=== PATIENT | female | born 1975 | race Caucasian/White ===

== ENCOUNTER 2017-04-19 13:36 | Emergency (ER) | payer BC ==
[2017-04-19] MEDS ORDERED: Sodium Chloride 0.9% 10 ML Syringe FLUSH PRN (14:16)
[2017-04-19] MEDS ORDERED: Sodium Chloride 0.9% 2,000 ML IV ONE (14:16)
[2017-04-19] MEDS ORDERED: HYDROmorphone 0.5 MG/0.5 ML Syringe IM ONE (14:16)
[2017-04-19] MEDS ORDERED: Ondansetron 4 MG/2 ML SDV IVPUSH ONE (14:16)
[2017-04-19] MEDS ORDERED: HYDROmorphone 0.5 MG/0.5 ML Syringe IVPUSH ONE ×2 (14:23→18:45)
--- NOTE | 2017-04-19 14:24 | EDM.PDOC ---
ED HPI GENERAL MEDICAL PROBLEM - General Chief Complaint: Abdominal Pain Stated Complaint: VOMITING LOWER ABDOMINAL PAIN Time Seen by Provider: 04/19/17 14:06 Source of Information: Reports: Patient History Limitations: Reports: No Limitations - History of Present Illness INITIAL COMMENTS - FREE TEXT/NARRATIVE: Patient is a 42-year-old female who presents to the ED complaining of periumbilical abdominal pain with nausea, vomiting, and diarrhea. Patient states the nausea and vomiting started at approx. 2:00 this morning and has progressed since. She cannot keep anything down at this point. Currently she is dry heaving while in the ED. Pain to the abdomen is described as a crampy sharp sensation that radiates to her back. Worsens with vomiting. She questions if it is not related to her gallbladder. She's had no symptoms as such in the past. 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 She ate pizza last night along with all of her family with nobody else sick from the food. There's been no blood within her stools. There's been no documented fever, chest pain, shortness of breath, dysuria, or any additional complaints. Upon arrival patient was tachycardic at rest. Suspect volume depletion. She has a history of hypokalemia and takes potassium supplementation, Anxiety takes Zoloft, Acne takes spironolactone. She also has a history of kidney stones. Abdomen Pain Score (Numeric/FACES): 7 - Related Data Allergies Allergy/AdvReac Type Severity Reaction Status Date / Time acetaminophen [From Vicodin] Allergy Itching Verified 04/19/17 13:50 hydrocodone [From Vicodin] Allergy Itching Verified 04/19/17 13:50 Home Meds: Home Meds Potassium Chloride 10 meq PO DAILY #70 tablet.er 01/27/14 [Rx] Sertraline HCl [Zoloft] 100 mg PO DAILY 01/27/14 [History] Acetaminophen/oxyCODONE [Percocet 325-5 MG] 1 tab PO Q6H PRN #21 tablet [Rx] Control Med. 1 tab PO DAILY 04/19/17 [History] Levofloxacin [Levaquin] 500 mg PO Q24H #7 tablet 04/19/17 [Rx] Ondansetron [Zofran ODT] 4 mg PO Q6H PRN #21 tab.dis 04/19/17 [Rx] Spironolactone [Aldactone] 25 mg PO DAILY 04/19/17 [History] Past Medical History Psychiatric History: Reports: Anxiety Social & Family History - Tobacco Use Smoking Status *Q: Never Smoker - Alcohol Use Days Per Week of Alcohol Use: 0 - Recreational Drug Use Recreational Drug Use: No ED ROS GENERAL - Review of Systems Review Of Systems: ROS reveals no pertinent complaints other than HPI. ED EXAM, GI/ABD - Physical Exam Exam: See Below Exam Limited By: Other (dyr heaving) General Appearance: Alert, WD/WN, Moderate Distress Ears: Hearing Grossly Normal Nose: Normal Inspection Throat/Mouth: Normal Voice, No Airway Compromise, Other (dry oral mucosa) Neck: Normal Inspection, Supple Respiratory/Chest: No Respiratory Distress, Lungs Clear, Normal Breath Sounds, No Accessory Muscle Use, Chest Non-Tender Cardiovascular: Normal Peripheral Pulses, No Murmur, Tachycardia GI/Abdominal Exam: Normal Bowel Sounds, Soft, No Organomegaly, No Distention, Tender (periumbilical region) Back Exam: Normal Inspection Neurological: Alert, Oriented, CN II-XII Intact, Normal Cognition, No Motor/ Sensory Deficits Psychiatric: Normal Affect, Normal Mood Skin Exam: Warm, Dry, Other (pale) Course - Vital Signs Last Recorded V/S: Last Vital Signs Temp 97.6 F 04/19/17 13:52 Pulse 111 H 04/19/17 13:52 Resp 18 04/19/17 13:52 BP 110/81 04/19/17 13:52 Pulse Ox 100 04/19/17 13:52 Orthostatic Blood Pressure [ 107/76 Standing] Orthostatic Blood Pressure [ 103/72 Sitting] Orthostatic Blood Pressure [ 100/57 Supine] - Orders/Labs/Meds Orders: Active Orders 24 hr Category Date Time Status EKG Documentation Completion [RC] STAT Care 04/19/17 14:57 Active Labs: Laboratory Tests 04/19/17 04/19/17 04/19/17 Range/Units 14:05 14:05 14:05 WBC 13.75 H (3.98-10.04) K/mm3 RBC 5.56 H (3.98-5.22) M/mm3 Hgb 15.6 (11.2-15.7) gm/L Hct 45.5 H (34.1-44.9) % MCV 81.8 (79.4-94.8) fl MCH 28.1 (25.6-32.2) pg MCHC 34.3 (32.2-35.5) g/dl RDW Std Deviation 43.3 (36.4-46.3) fL Plt Count 330 (182-369) K/mm3 MPV 11.0 (9.4-12.3) fl Neut % (Auto) 92.6 H (34.0-71.1) % Lymph % (Auto) 3.0 L (19.3-51.7) % [place] % (Auto) 3.5 L (4.7-12.5) % Eos % (Auto) 0.5 L (0.7-5.8) Baso % (Auto) 0.1 (0.1-1.2) % Neut # (Auto) 12.73 H (1.56-6.13) K/mm3 Lymph # (Auto) 0.41 L (1.18-3.74) K/mm3 [place] # (Auto) 0.48 H (0.24-0.36) K/mm3 Eos # (Auto) 0.07 (0.04-0.36) K/mm3 Baso # (Auto) 0.02 (0.01-0.08) K/mm3 Manual Slide Review Abnormal smear Sodium 141 (136-145) mEq/L Potassium 2.3 L* (3.5-5.1) mEq/L Chloride 105 (98-107) mEq/L Carbon Dioxide 19 L (21-32) mEq/L Anion Gap 19.3 H (5-15) BUN 11 (7-18) mg/dL Creatinine 1.0 (0.55-1.02) mg/dL Est Cr Clr Drug Dosing 60.77 mL/min Estimated GFR (MDRD) > 60 (>60) mL/min BUN/Creatinine Ratio 11.0 L (14-18) Glucose 121 H (74-106) mg/dL Calcium 9.3 (8.5-10.1) mg/dL Magnesium (1.8-2.4) mg/dl Total Bilirubin 0.5 (0.2-1.0) mg/dL AST 22 (15-37) U/L ALT 27 (14-59) U/L Alkaline Phosphatase 60 (46-116) U/L Troponin I (0.00-0.056) ng/mL C-Reactive Protein 1.2 H* (<1.0) mg/dL Total Protein 8.4 H (6.4-8.2) g/dl Albumin 4.1 (3.4-5.0) g/dl Globulin 4.3 gm/dL Albumin/Globulin Ratio 1.0 (1-2) Lipase 196 (73-393) U/L HCG, Qual Negative (NEGATIVE) Urine Color (Yellow) Urine Appearance (Clear) Urine pH (5.0-8.0) Ur Specific [place] (1.005-1.030) Urine Protein (Negative) Urine Glucose (UA) (Negative) Urine Ketones (Negative) Urine Occult Blood (Negative) Urine Nitrite (Negative) Urine Bilirubin (Negative) Urine Urobilinogen (0.2-1.0) Ur Leukocyte Esterase (Negative) Urine RBC (0-5) /hpf Urine WBC (0-5) /hpf Ur Epithelial Cells (0-5) /hpf Urine Bacteria (FEW) /hpf Urine Mucus (FEW) /hpf 04/19/17 04/19/17 04/19/17 Range/Units 14:05 14:05 15:20 WBC (3.98-10.04) K/mm3 RBC (3.98-5.22) M/mm3 Hgb (11.2-15.7) gm/L Hct (34.1-44.9) % MCV (79.4-94.8) fl MCH (25.6-32.2) pg MCHC (32.2-35.5) g/dl RDW Std Deviation (36.4-46.3) fL Plt Count (182-369) K/mm3 MPV (9.4-12.3) fl Neut % (Auto) (34.0-71.1) % Lymph % (Auto) (19.3-51.7) % [place] % (Auto) (4.7-12.5) % Eos % (Auto) (0.7-5.8) Baso % (Auto) (0.1-1.2) % Neut # (Auto) (1.56-6.13) K/mm3 Lymph # (Auto) (1.18-3.74) K/mm3 [place] # (Auto) (0.24-0.36) K/mm3 Eos # (Auto) (0.04-0.36) K/mm3 Baso # (Auto) (0.01-0.08) K/mm3 Manual Slide Review Sodium (136-145) mEq/L Potassium (3.5-5.1) mEq/L Chloride (98-107) mEq/L Carbon Dioxide (21-32) mEq/L Anion Gap (5-15) BUN (7-18) mg/dL Creatinine (0.55-1.02) mg/dL Est Cr Clr Drug Dosing mL/min Estimated GFR (MDRD) (>60) mL/min BUN/Creatinine Ratio (14-18) Glucose (74-106) mg/dL Calcium (8.5-10.1) mg/dL Magnesium 2.0 (1.8-2.4) mg/dl Total Bilirubin (0.2-1.0) mg/dL AST (15-37) U/L ALT (14-59) U/L Alkaline Phosphatase (46-116) U/L Troponin I < 0.017 (0.00-0.056) ng/mL C-Reactive Protein (<1.0) mg/dL Total Protein (6.4-8.2) g/dl Albumin (3.4-5.0) g/dl Globulin gm/dL Albumin/Globulin Ratio (1-2) Lipase (73-393) U/L HCG, Qual (NEGATIVE) Urine Color Yellow (Yellow) Urine Appearance Clear (Clear) Urine pH 6.5 (5.0-8.0) Ur Specific [place] 1.025 (1.005-1.030) Urine Protein 2+ H (Negative) Urine Glucose (UA) Negative (Negative) Urine Ketones Negative (Negative) Urine Occult Blood 2+ H (Negative) Urine Nitrite Negative (Negative) Urine Bilirubin Negative (Negative) Urine Urobilinogen 0.2 (0.2-1.0) Ur Leukocyte Esterase Trace H (Negative) Urine RBC 10-20 H (0-5) /hpf Urine WBC 10-20 H (0-5) /hpf Ur Epithelial Cells 5-10 H (0-5) /hpf Urine Bacteria Few (FEW) /hpf Urine Mucus Moderate H (FEW) /hpf 12 Range/Units 17:45 WBC (3.98-10.04) K/mm3 RBC (3.98-5.22) M/mm3 Hgb (11.2-15.7) gm/L Hct (34.1-44.9) % MCV (79.4-94.8) fl MCH (25.6-32.2) pg MCHC (32.2-35.5) g/dl RDW Std Deviation (36.4-46.3) fL Plt Count (182-369) K/mm3 MPV (9.4-12.3) fl Neut % (Auto) (34.0-71.1) % Lymph % (Auto) (19.3-51.7) % [place] % (Auto) (4.7-12.5) % Eos % (Auto) (0.7-5.8) Baso % (Auto) (0.1-1.2) % Neut # (Auto) (1.56-6.13) K/mm3 Lymph # (Auto) (1.18-3.74) K/mm3 [place] # (Auto) (0.24-0.36) K/mm3 Eos # (Auto) (0.04-0.36) K/mm3 Baso # (Auto) (0.01-0.08) K/mm3 Manual Slide Review Sodium (136-145) mEq/L Potassium 2.8 L (3.5-5.1) mEq/L Chloride (98-107) mEq/L Carbon Dioxide (21-32) mEq/L Anion Gap (5-15) BUN (7-18) mg/dL Creatinine (0.55-1.02) mg/dL Est Cr Clr Drug Dosing mL/min Estimated GFR (MDRD) (>60) mL/min BUN/Creatinine Ratio (14-18) Glucose (74-106) mg/dL Calcium (8.5-10.1) mg/dL Magnesium (1.8-2.4) mg/dl Total Bilirubin (0.2-1.0) mg/dL AST (15-37) U/L ALT (14-59) U/L Alkaline Phosphatase (46-116) U/L Troponin I (0.00-0.056) ng/mL C-Reactive Protein (<1.0) mg/dL Total Protein (6.4-8.2) g/dl Albumin (3.4-5.0) g/dl Globulin gm/dL Albumin/Globulin Ratio (1-2) Lipase (73-393) U/L HCG, Qual (NEGATIVE) Urine Color (Yellow) Urine Appearance (Clear) Urine pH (5.0-8.0) Ur Specific [place] (1.005-1.030) Urine Protein (Negative) Urine Glucose (UA) (Negative) Urine Ketones (Negative) Urine Occult Blood (Negative) Urine Nitrite (Negative) Urine Bilirubin (Negative) Urine Urobilinogen (0.2-1.0) Ur Leukocyte Esterase (Negative) Urine RBC (0-5) /hpf Urine WBC (0-5) /hpf Ur Epithelial Cells (0-5) /hpf Urine Bacteria (FEW) /hpf Urine Mucus (FEW) /hpf Meds: Medications Discontinued Medications Generic Name Dose Route Start Last Admin Trade Name Freq PRN Reason Stop Dose Admin Hydromorphone HCl 0.5 mg 04/19/17 14:16 04/19/17 14:54 Dilaudid IM 04/19/17 14:17 Not Given ONETIME ONE Hydromorphone HCl 0.5 mg 04/19/17 14:23 04/19/17 14:43 Dilaudid IVPUSH 04/19/17 14:24 0.5 mg ONETIME ONE Administration Hydromorphone HCl 0.5 mg 04/19/17 18:45 04/19/17 18:52 Dilaudid IVPUSH 04/19/17 18:46 0.5 mg ONETIME ONE Administration Sodium Chloride 2,000 mls @ 999 mls/hr 04/19/17 14:16 04/19/17 14:34 Normal Saline IV 04/19/17 16:16 999 mls/hr ONETIME ONE Administration Potassium Chloride/Dextrose/Sod Cl 1,000 mls @ 999 mls/hr 04/19/17 14:59 02/24 15:23 D5 Ns With 40 Meq Kcl IV 04/19/17 15:59 999 mls/hr ASDIRECTED ONE Administration Levofloxacin/Dextrose 750 mg/ 150 mls @ 100 mls/hr 04/19/17 18:28 04/19/17 18 :39 Premix IV 04/19/17 19:57 100 mls/hr ONETIME ONE Administration Ondansetron HCl 4 mg 04/19/17 14:16 04/19/17 14:38 Zofran IVPUSH 04/19/17 14:17 4 mg ONETIME ONE Administration Sodium Chloride 10 ml 04/19/17 14:16 04/19/17 14:38 Saline Flush FLUSH 10 ml ASDIRECTED PRN Administration Keep Vein Open - Re-Assessments/Exams Free Text/Narrative Re-Assessment/Exam: Unable to obtain was started vitals. Patient actively dry heaving. At rest her heart rate is elevated 107 suspect patient is volume depleted with her history of multiple episodes of nausea vomiting and diarrhea since 2:00 a.m. IV established with normal saline 999 mls per hour total 2000 mL, Zofran 4 mg IVP, and Dilaudid 0.5 mg IV. Initial labs and studies include CBC, chem 14, CRP, lipase, hCG, UA, 2 view abdomen flat and upright. 04/19/17 14:47 Non specific air and stool patterns with no concerning finding. 06/20/16 14:53 Laboratory has read back potassium level 2.3. Ordered magnesium level to be drawn along with an EKG. 04/19/17 14:59 Discussed with , suggests running a liter of d5 with ns with 40meq of potassium. 04/19/17 15:05 Reassessment, patients vomiting has subsided. 04/19/17 15:28 EKG revealed abnormal findings concerning for ischemia. Believed associated with low potassium. Thus ordered troponin. EKG, sinus rhythm at a rate of [address] depression with inverted T waves V3 through V4 cannot rule out ischemia, T-wave inversion in leads 2, 3, and aVF , near Q-wave in aVL. 04/19/17 16:10 Labs reviewed: White blood cell count 13.75, hemoglobin 15.5, neutrophil percentage is 92.6, neutrophil number is 12.73, sodium 141, potassium 2.3, AG 19.3, creatinine 1.0, glucose 121, LFTs within normal limits, CRP 1.2, lipase 196, and hCG negative. Magnesium was 2.0. Troponin less than 0.017. 04/19/17 17:40 Reassessment, patient states she is feeling much better. Nausea subsided. Pain is faint at this time. Will order potassium chemistry to ensure trending upward. She does have potassium supplementation at home. She's taking 10 meq Po everyday. Will have her take 40 meQ by mouth every day until evaluated by PCP. Nursing staff states orthostatic vitals were negative. Patient tolerated standing. 04/19/17 18:12 Potassium is 2.8 trending upward. UA 2+ protein, occult blood 2+, trace leukocyte Estrace, RBC 10-20, urine wbc's 10-20, epithelial cells 5-10, urine bacteria few, urine mucus moderate. Patient does have a history of pyelonephritis with similar symptoms when asked. Pain does radiate to her back. I will treat her for pyelonephritis with Levaquin 750 mg IV. Will discharge patient home with Levaquin 500 every day for 7 days. Ordered dilaudid 0.5mg IVP for pain. IV antibiotic completed. We will discharge patient home with instructions as documented. Departure - Departure Time of Disposition: 18:22 Disposition: Home, Self-Care 01 Condition: Good Clinical Impression: Gastroenteritis, Hypokalemia, Pyelonephritis - Discharge Information Prescriptions: Acetaminophen/oxyCODONE [Percocet 325-5 MG] 1 tab PO Q6H PRN #21 tablet PRN Reason: Pain (Severe 7-10) Levofloxacin [Levaquin] 500 mg PO Q24H #7 tablet Ondansetron [Zofran ODT] 4 mg PO Q6H PRN #21 tab.dis PRN Reason: Nausea/Vomiting Instructions: Viral Gastroenteritis, Adult, [id number], Nausea and Vomiting, Adult, [id number], Abdominal Pain, Adult, [id number], Pain Medicine Instructions, [id number] Referrals: PCP,None [Primary Care Provider] - Forms: ED Department Discharge, ED Return to Work/School Form Additional Instructions: As discussed do believe you have gastroenteritis and also pyelonephritis with findings on lab work. Treatment will include Levaquin 500 mg every 24 hours for the next 7 days. Zofran 4 mg every 6 hours as needed for nausea vomiting. Push the fluids. In the next 24-48 hours take with a clear liquid diet. Thereafter advance to a bland diet advancing as tolerated to normal diet. Stick with a low residue diet and advance as tolerated. For severe pain take Trion one tab every 6 hours as needed[address] Do not drive while taking the Trion. Follow-up with primary care provider in the next 2-3 days if symptoms persist and are not improving. Return to ED if you develop any worsening symptoms. - My Orders Last 24 Hours: My Active Orders 04/19/17 14:57 EKG Documentation Completion [RC] STAT - Assessment/Plan Last 24 Hours: My Active Orders 04/19/17 14:57 EKG Documentation Completion [RC] STAT
[2017-04-19] MEDS ORDERED: D5%-0.9% NaCl w/ KCl 40 meq 1,000 ML IV ONE (14:59)
[2017-04-19] MEDS ORDERED: Levofloxacin/Dextrose 5%-Water 750 MG in Premix Bag 1 BAG IV ONE (18:28)
--- NOTE | 2017-04-20 07:53 | CR ---
Abdomen: Supine and upright views of the abdomen were obtained. Comparison: No prior study. Several loops of air-filled bowel are seen within left upper abdomen and believed to be incidental. Calcifications are seen overlying both kidneys compatible with multiple renal calculi. No other abnormal calcifications are seen. Bony structures are unremarkable. No free air is seen. Impression: 1. Multiple renal calculi. 2. Several loops of bowel within the left upper abdomen believed to be incidental. Diagnostic code #3
== END 2017-04-19 20:30 | disposition home or self-care (01) ==
LOC: JD.ED 13:36
DX: K52.9 Noninfective gastroenteritis and colitis, unspecified (principal); E87.6 Hypokalemia; N12 Tubulo-interstitial nephritis, not specified as acute or chronic; Z88.5 Allergy status to narcotic agent; Z79.899 Other long term (current) drug therapy
CPT/HCPCS: 36415; 74020; 80053; 81001; 83690; 83735; 84132; 84484; 84703; 85025; 86140; 93005; 96365; 96366; 96367; 96375; 96376; 99284; J1170; J1956; J2405; J3480; J7040; J7050; 93010

== ENCOUNTER 2020-08-05 23:29 | Observation (INO) | payer BC ==
--- NOTE | 2020-08-06 | EDM.PDOC ---
ED HPI GENERAL MEDICAL PROBLEM - General Chief Complaint: Chest Pain Stated Complaint: CHEST PAIN/SOB Time Seen by Provider: 08/05/20 23:34 Source of Information: Reports: Patient History Limitations: Reports: No Limitations - History of Present Illness INITIAL COMMENTS - FREE TEXT/NARRATIVE: The patient has come in with central chest pain. She received her first [place] Covid vaccination 3 days ago. The following day she felt nonspecifically unwell. Yesterday she felt somewhat better but today she has been troubled by central chest pain which is exacerbated by deep breathing and movement of the torso. There has been no diaphoresis, [place] shortness of breath, syncope or near syncope, nausea or vomiting. Additionally there is been no fever urinary symptoms or cough. There are no cardio risk factors. Only medication is Zoloft. She is a non-smoker. Patient says she is menopausal and cannot remember when she last had a period. Patient has a history of kidney stones and pyelonephritis. She has also been treated for hypokalemia. She has had no flank pain or dysuria. Chest Pain Score (Numeric/FACES): 7 - Related Data Allergies Allergy/AdvReac Type Severity Reaction Status Date / Time acetaminophen [From Vicodin] Allergy Itching Verified 04/19/17 13:50 hydrocodone [From Vicodin] Allergy Itching Verified 08/05/20 23:47 Home Meds: Home Meds Sertraline HCl [Zoloft] 100 mg PO DAILY 01/27/14 [History] Past Medical History Genitourinary History: Reports: Renal Calculus Other Genitourinary History: lithotrypsy Psychiatric History: Reports: Anxiety - Past Surgical History Female Surgical History: Reports: Lithotripsy/ESWL Social & Family History - Tobacco Use Tobacco Use Status *Q: Never Tobacco User ED ROS GENERAL - Review of Systems Review Of Systems: Comprehensive ROS is negative, except as noted in HPI. ED EXAM, GENERAL - Physical Exam Exam: See Below Free Text/Narrative:: Patient is alert and in no distress, looks well. Head normocephalic atraumatic. EOMI PERRLA. Neck is supple without jugular venous distention. Lungs are clear breath sounds are full and equal bilaterally. Heart is regular. Central anterior chest is tender to pressure reproducing the pain complained of. Abdomen is soft and nontender. There is no peripheral edema cyanosis or clubbing of the digits. Neurologically the patient is grossly intact with symmetrical gait, fluent speech and no deficits of motor or sensory. Skin is warm and dry with normal turgor. Course - Vital Signs Text/Narrative:: The patient has a potassium of 1.9 and IV potassium chloride is ordered. In the urinalysis there is substantial RBCs and WBCs. This was again presented to the patient and she assures us she has had no dysuria no flank pain and on reexamination there is no flank pain at all. For completeness were getting a CT scan without contrast to assess this situation. Patient has received IV Levaquin for presumptive UTI. CT scan of the abdomen shows a hepatic lesion in the inferior right lobe. Differential diagnosis would include cavernous hemangioma, focal nodular hyperplasia, or neoplastic change. After multiple doses of potassium the patient still has hypokalemia with a level of 2.3. Discussed with Dr. Urias who will admit the patient into observation status. Patient agrees with the plan. In light of the CT report ultrasound of the liver is also ordered. The patient is to be continued on Levaquin if she is going to be here more than 24 hours. Last Recorded V/S: Last Vital Signs Temp 36.4 C 08/05/20 23:43 Pulse 60 08/05/20 23:43 Resp 16 08/05/20 23:43 BP 126/77 08/05/20 23:43 Pulse Ox 100 08/05/20 23:43 - Orders/Labs/Meds Orders: Active Orders 24 hr Category Date Time Status EKG Documentation Completion [RC] ASDIRECTED Care 08/05/20 23:46 Active Chest 1V Frontal [CR] Stat Exams 08/05/20 23:53 Taken CORONAVIRUS COVID-19 HANNAH [MOLEC] Stat Lab 08/06/20 06:28 Ordered CULTURE URINE [RM] Stat Lab 08/06/20 00:19 Received Potassium Chloride [KCl in Water 10 MEQ/100 ML] 10 meq Med 08/06/20 06:30 Active Premix Bag 1 bag IV Q1H Sodium Chloride 0.9% [Normal Saline] 1,000 ml Med 08/06/20 01:15 Active IV ASDIRECTED EKG 12 Lead [EK] Stat Ther 08/05/20 23:46 Ordered Medication Orders Sodium Chloride (Normal Saline) 1,000 mls @ 125 mls/hr IV ASDIRECTED HARPREET Last Admin: 08/06/20 01:15 Dose: 125 mls/hr Documented by: DANYEL Potassium Chloride 10 meq/ (Premix) 100 mls @ 100 mls/hr IV Q1H HARPREET Stop: 08/06/20 10:29 Labs: Laboratory Tests 08/05/20 08/05/20 08/05/20 Range/Units 23:59 23:59 23:59 WBC 14.09 H (3.98-10.04) K/mm3 RBC 4.67 (3.98-5.22) M/mm3 Hgb 12.7 D (11.2-15.7) gm/dl Hct 37.0 (34.1-44.9) % MCV 79.2 L (79.4-94.8) fl MCH 27.2 (25.6-32.2) pg MCHC 34.3 (32.2-35.5) g/dl RDW Std Deviation 41.5 (36.4-46.3) fL Plt Count 344 (182-369) K/mm3 MPV 10.5 (9.4-12.3) fl Neutrophils % (Manual) 47 (40-60) % Band Neutrophils % 0 (0-10) % Lymphocytes % (Manual) 45 H (20-40) % Atypical Lymphs % 0 % Monocytes % (Manual) 6 (2-10) % Eosinophils % (Manual) 2 (0.7-5.8) % Basophils % (Manual) 0 L (0.1-1.2) Platelet Estimate Adequate RBC Morph Comment Normal D-Dimer, Quantitative < 0.19 L (0.19-0.50) mg/L Sodium 139 (136-145) mEq/L Potassium 1.9 L* (3.5-5.1) mEq/L Chloride 100 (98-107) mEq/L Carbon Dioxide 25 (21-32) mEq/L Anion Gap 15.9 H (5-15) BUN 14 (7-18) mg/dL Creatinine 1.0 (0.55-1.02) mg/dL Est Cr Clr Drug Dosing 60.40 mL/min Estimated GFR (MDRD) 60 (>60) mL/min BUN/Creatinine Ratio 14.0 (14-18) Glucose 88 (74-106) mg/dL Calcium 9.0 (8.5-10.1) mg/dL Magnesium (1.8-2.4) mg/dl Total Bilirubin 0.3 (0.2-1.0) mg/dL AST 27 (15-37) U/L ALT 30 (14-59) U/L Alkaline Phosphatase 59 (46-116) U/L Troponin I 0.028 (0.00-0.056) ng/mL Total Protein 7.0 (6.4-8.2) g/dl Albumin 3.6 (3.4-5.0) g/dl Globulin 3.4 gm/dL Albumin/Globulin Ratio 1.1 (1-2) Urine Color (Yellow) Urine Appearance (Clear) Urine pH (5.0-8.0) Ur Specific [place] (1.005-1.030) Urine Protein (Negative) Urine Glucose (UA) (Negative) Urine Ketones (Negative) Urine Occult Blood (Negative) Urine Nitrite (Negative) Urine Bilirubin (Negative) Urine Urobilinogen (0.2-1.0) Ur Leukocyte Esterase (Negative) Urine RBC (0-5) /hpf Urine WBC (0-5) /hpf Ur Squamous Epith Cells (0-5) /hpf Urine Bacteria (FEW) /hpf Urine Mucus (FEW) /hpf Urine HCG, Qual (NEGATIVE) 08/06/20 08/06/20 08/06/20 Range/Units 00:24 00:24 05:45 WBC (3.98-10.04) K/mm3 RBC (3.98-5.22) M/mm3 Hgb (11.2-15.7) gm/dl Hct (34.1-44.9) % MCV (79.4-94.8) fl MCH (25.6-32.2) pg MCHC (32.2-35.5) g/dl RDW Std Deviation (36.4-46.3) fL Plt Count (182-369) K/mm3 MPV (9.4-12.3) fl Neutrophils % (Manual) (40-60) % Band Neutrophils % (0-10) % Lymphocytes % (Manual) (20-40) % Atypical Lymphs % % Monocytes % (Manual) (2-10) % Eosinophils % (Manual) (0.7-5.8) % Basophils % (Manual) (0.1-1.2) Platelet Estimate RBC Morph Comment D-Dimer, Quantitative (0.19-0.50) mg/L Sodium 139 (136-145) mEq/L Potassium 2.3 L* (3.5-5.1) mEq/L Chloride 103 (98-107) mEq/L Carbon Dioxide 25 (21-32) mEq/L Anion Gap 13.3 (5-15) BUN 12 (7-18) mg/dL Creatinine 1.0 (0.55-1.02) mg/dL Est Cr Clr Drug Dosing 60.40 mL/min Estimated GFR (MDRD) 60 (>60) mL/min BUN/Creatinine Ratio 12.0 L (14-18) Glucose 94 (74-106) mg/dL Calcium 8.3 L (8.5-10.1) mg/dL Magnesium 1.9 (1.8-2.4) mg/dl Total Bilirubin (0.2-1.0) mg/dL AST (15-37) U/L ALT (14-59) U/L Alkaline Phosphatase (46-116) U/L Troponin I (0.00-0.056) ng/mL Total Protein (6.4-8.2) g/dl Albumin (3.4-5.0) g/dl Globulin gm/dL Albumin/Globulin Ratio (1-2) Urine Color Yellow (Yellow) Urine Appearance Clear (Clear) Urine pH 7.0 (5.0-8.0) Ur Specific [place] 1.020 (1.005-1.030) Urine Protein 1+ H (Negative) Urine Glucose (UA) Negative (Negative) Urine Ketones Negative (Negative) Urine Occult Blood 2+ H (Negative) Urine Nitrite Negative (Negative) Urine Bilirubin Negative (Negative) Urine Urobilinogen 0.2 (0.2-1.0) Ur Leukocyte Esterase 2+ H (Negative) Urine RBC >100 H (0-5) /hpf Urine WBC >100 H (0-5) /hpf Ur Squamous Epith Cells 10-20 H (0-5) /hpf Urine Bacteria Few (FEW) /hpf Urine Mucus Not seen (FEW) /hpf Urine HCG, Qual Negative (NEGATIVE) Meds: Medications Generic Name Dose Route Start Last Admin Trade Name Freq PRN Reason Stop Dose Admin Sodium Chloride 1,000 mls @ 125 mls/hr 08/06/20 01:15 08/06/20 01:15 Normal Saline IV 125 mls/hr ASDIRECTED HARPREET Administration Potassium Chloride 10 meq/ 100 mls @ 100 mls/hr 08/06/20 06:30 Premix IV 08/06/20 10:29 Q1H HARPREET Discontinued Medications Generic Name Dose Route Start Last Admin Trade Name Mirna PRN Reason Stop Dose Admin Potassium Chloride 10 meq/ 100 mls @ 100 mls/hr 08/06/20 01:00 08/06/20 04:41 Premix IV 08/06/20 04:59 100 mls/hr Q1H HARPREET Administration Levofloxacin/Dextrose 750 mg/ 150 mls @ 100 mls/hr 08/06/20 01:28 08/06/20 02 :31 Premix IV 08/06/20 02:57 100 mls/hr ONETIME ONE Administration Potassium Chloride 40 meq 08/06/20 02:18 08/06/20 02:40 Potassium Chloride 20 Meq Tab.Er PO 08/06/20 02:19 40 meq ONETIME ONE Administration Departure - Departure Time of Disposition: 06:33 Disposition: Refer to Observation Condition: Good Clinical Impression: Hypokalemia, Costochondral chest pain, Renal lithiasis, Abnormal CT of liver UTI (urinary tract infection) Qualifiers: Urinary tract infection type: site unspecified Hematuria presence: with hematuria Qualified Code(s): N39.0 - Urinary tract infection, site not specified Referrals: Mira Burr PA-C [Primary Care Provider] - Forms: ED Department Discharge Sepsis Event Note (ED) - Evaluation Sepsis Screening Result: No Definite Risk - Focused Exam Vital Signs: Vital Signs Temp Pulse Resp BP Pulse Ox 08/05/20 23:43 36.4 C 60 16 126/77 100 - My Orders Last 24 Hours: My Active Orders 08/05/20 23:46 EKG Documentation Completion [RC] ASDIRECTED EKG 12 Lead [EK] Stat 08/05/20 23:53 Chest 1V Frontal [CR] Stat 08/06/20 00:19 CULTURE URINE [RM] Stat 08/06/20 01:15 Sodium Chloride 0.9% [Normal Saline] 1,000 ml IV ASDIRECTED 08/06/20 06:28 CORONAVIRUS COVID-19 [facility]ANNA[facility] [MOLEC] Stat 08/06/20 06:30 Potassium Chloride [KCl in Water 10 MEQ/100 ML] 10 meq Premix Bag 1 bag IV Q1H - Assessment/Plan Last 24 Hours: My Active Orders 08/05/20 23:46 EKG Documentation Completion [RC] ASDIRECTED EKG 12 Lead [EK] Stat 08/05/20 23:53 Chest 1V Frontal [CR] Stat 08/06/20 00:19 CULTURE URINE [RM] Stat 08/06/20 01:15 Sodium Chloride 0.9% [Normal Saline] 1,000 ml IV ASDIRECTED 08/06/20 06:28 CORONAVIRUS COVID-19 HANNAH [MOLEC] Stat 08/06/20 06:30 Potassium Chloride [KCl in Water 10 MEQ/100 ML] 10 meq Premix Bag 1 bag IV Q1H
[2020-08-06] MEDS: Potassium Chloride 10 MEQ in Premix Bag 1 BAG IV SCH ×7 (01:01→13:48)
[2020-08-06] MEDS ORDERED: Sodium Chloride 0.9% 1,000 ML IV SCH (01:15)
[2020-08-06] MEDS ORDERED: Levofloxacin/Dextrose 5%-Water 750 MG in Premix Bag 1 BAG IV ONE (01:28)
[2020-08-06] MEDS ORDERED: Potassium Chloride 20 MEQ Tab.ER PO ONE ×2 (02:18→13:30)
--- NOTE | 2020-08-06 08:16 | PCM.HP.2 ---
H&P History of Present Illness - General Date of Service: 08/06/20 Admit Problem/Dx: Admission Diagnosis/Problem Admission Diagnosis/Problem Hypokalemia Source of Information: Patient, Old Records, Provider, RN, RN Notes Reviewed History Limitations: Reports: No Limitations - History of Present Illness Initial Comments - Free Text/Narative: This is a 45-year-old female who presents to ED in the late night hours of 08/05/2020 with chest pain. She states the pain is located in her central chest. She received her first [employer] Covid vaccination 3 days ago and reports she f elt nonspecifically unwell the day after. She reports she felt better yesterday but today she has had central chest pain exacerbated by deep breathing and movement of her torso. Denies any diaphoresis, paris shortness of breath, syncope, near syncope, nausea, vomiting, fever, urinary symptoms, cough. No prior cardiac risk factors and her only medication is Zoloft. She is a non- smoker and says she is postmenopausal and cannot remember when she has had her last period. History of kidney stones and pyelonephritis. She also reports history of hypokalemia. Currently denies any flank pain or dysuria. In the ED temp is 36.4 Celsius. Pulse 60. Respirations 16. Blood pressure 126/77. Pulse ox 100. Twelve-lead EKG shows a sinus rhythm at 60 bpm with a diffuse nonspecific repolarization abnormality. Labs are obtained showing a leukocytosis of 14.09. Hemoglobin is 12.7. Platelets are 344,000. Neutrophils are 47% and there is no bandemia. D-dimer is less than 0.19. Sodium 139. P otassium 1.9. Chloride 100. Carbon dioxide 25. Anion gap 15.9. Creatinine 1.0. GFR 60, glucose 88, total bilirubin 0.3. AST 27, ALT 30, alkaline phosphatase 59. Troponin 0 0.028. Protein 7.0. Albumin 3.6. UA is obtained and is suggestively positive with a protein of 1+, 2+ occult blood, 2+ leukocyte esterase, greater than 100 RBCs, greater than 100 WBCs, however 10-20 squamous epithelial cells are noted. Urine hCG is negative. Urine is sent for culture. The patient is given both IV and p.o. potassium and repeat BMP is obtained nearly 6 hours later. She is also started on IV fluids and given IV Levaquin for presumptive UTI. BMP shows a increase potassium to 2.3 and an improved anion gap to 13.3. Magnesium was also checked and is 1.9. CT scan of the abdomen pelvis is obtained showing a hepatic lesion in the inferior right lobe. Differential diagnosis includes cavernous hemangioma, focal nodular hyperplasia, or neoplastic change. Plan is to admit the patient for observation status to supplement her potassium and work-up abnormal CT finding further. We will also await findings of her urine culture. She carries a history of anxiety and renal calculus requiring lithotripsy. She was never a smoker. Primary care provider is Mira Burr PA-C at [facility]. Chest Pain Score (Numeric/FACES): 7 - Related Data Allergies/Adverse Reactions: Allergies Allergy/AdvReac Type Severity Reaction Status Date / Time acetaminophen [From Vicodin] Allergy Itching Verified 04/19/17 13:50 hydrocodone [From Vicodin] Allergy Itching Verified 08/05/20 23:47 Home Medications: Home Meds Sertraline HCl [Zoloft] 100 mg PO DAILY 01/27/14 [History] Past Medical History Genitourinary History: Reports: Renal Calculus Other Genitourinary History: lithotrypsy Psychiatric History: Reports: Anxiety - Past Surgical History Female Surgical History: Reports: Lithotripsy/ESWL Social & Family History - Tobacco Use Tobacco Use Status *Q: Never Tobacco User H&P Review of Systems - Review of Systems: Review Of Systems: See Below General: Reports: No Symptoms. Denies: Fever, Chills, Malaise, Weakness, Fatigue HEENT: Reports: No Symptoms. Denies: Headaches, Sore Throat Pulmonary: Reports: Pleuritic Chest Pain (upper chest midline ). Denies: Shortness of Breath, Wheezing, Cough Cardiovascular: Reports: Chest Pain. Denies: Palpitations, Dyspnea on Exertion, Orthopnea, Edema, Lightheadedness, Syncope Gastrointestinal: Reports: No Symptoms. Denies: Abdominal Pain, Constipation, Diarrhea, Nausea, Vomiting Genitourinary: Reports: No Symptoms. Denies: Dysuria, Frequency, Pain, Incontinence, Hematuria Musculoskeletal: Reports: No Symptoms Skin: Reports: No Symptoms. Denies: Cyanosis Psychiatric: Reports: No Symptoms. Denies: Confusion Neurological: Reports: No Symptoms. Denies: Confusion, Dizziness, Headache, Numbness, Pre-Existing Deficit, Difficulty Walking, Gait Disturbance Hematologic/Lymphatic: Reports: No Symptoms Immunologic: Reports: No Symptoms Exam - Exam Exam: See Below - Vital Signs Vital Signs: Last Vital Signs Temp 98.1 F 08/06/20 07:59 Pulse 69 08/06/20 07:59 Resp 16 08/06/20 07:59 BP 116/82 08/06/20 07:59 Pulse Ox 100 08/06/20 07:59 Weight: 120 lb - Exam Quality Assessment: DVT Prophylaxis. No: Supplemental Oxygen, Urinary Catheter General: Alert, Oriented, Cooperative. No: Mild Distress HEENT: Conjunctiva Clear, EACs Clear, Hearing Intact, Mucosa Moist & [place] 6, Posterior Pharynx Clear Neck: Supple, Trachea Midline Lungs: Clear to Auscultation, Normal Respiratory Effort Cardiovascular: Regular Rate, Regular Rhythm, Other (Chest pain midline upper chest - worse with deep inspiration and point tender ) GI/Abdominal Exam: Normal Bowel Sounds, Soft, Non-Tender, No Distention (Female) Exam: Deferred Rectal (Female) Exam: Deferred Back Exam: Normal Inspection, Full Range of Motion Extremities: Normal Inspection, Normal Range of Motion, Non-Tender, No Pedal Edema, Normal Capillary Refill Skin: Warm, Dry, Intact Neurological: Cranial Nerves Intact (Grossly ) Neuro Extensive - Mental Status: Alert, Oriented x3, Normal Mood/Affect - Patient Data Lab Results Last 24 hrs: Laboratory Results - last 24 hr 08/05/20 08/05/20 08/05/20 Range/Units 23:59 23:59 23:59 WBC 14.09 H (3.98-10.04) K/mm3 RBC 4.67 (3.98-5.22) M/mm3 Hgb 12.7 D (11.2-15.7) gm/dl Hct 37.0 (34.1-44.9) % MCV 79.2 L (79.4-94.8) fl MCH 27.2 (25.6-32.2) pg MCHC 34.3 (32.2-35.5) g/dl RDW Std Deviation 41.5 (36.4-46.3) fL Plt Count 344 (182-369) K/mm3 MPV 10.5 (9.4-12.3) fl Neutrophils % (Manual) 47 (40-60) % Band Neutrophils % 0 (0-10) % Lymphocytes % (Manual) 45 H (20-40) % Atypical Lymphs % 0 % Monocytes % (Manual) 6 (2-10) % Eosinophils % (Manual) 2 (0.7-5.8) % Basophils % (Manual) 0 L (0.1-1.2) Platelet Estimate Adequate RBC Morph Comment Normal D-Dimer, Quantitative < 0.19 L (0.19-0.50) mg/L Sodium 139 (136-145) mEq/L Potassium 1.9 L* (3.5-5.1) mEq/L Chloride 100 (98-107) mEq/L Carbon Dioxide 25 (21-32) mEq/L Anion Gap 15.9 H (5-15) BUN 14 (7-18) mg/dL Creatinine 1.0 (0.55-1.02) mg/dL Est Cr Clr Drug Dosing 60.40 mL/min Estimated GFR (MDRD) 60 (>60) mL/min BUN/Creatinine Ratio 14.0 (14-18) Glucose 88 (74-106) mg/dL Calcium 9.0 (8.5-10.1) mg/dL Magnesium (1.8-2.4) mg/dl Total Bilirubin 0.3 (0.2-1.0) mg/dL AST 27 (15-37) U/L ALT 30 (14-59) U/L Alkaline Phosphatase 59 (46-116) U/L Troponin I 0.028 (0.00-0.056) ng/mL Total Protein 7.0 (6.4-8.2) g/dl Albumin 3.6 (3.4-5.0) g/dl Globulin 3.4 gm/dL Albumin/Globulin Ratio 1.1 (1-2) Urine Color (Yellow) Urine Appearance (Clear) Urine pH (5.0-8.0) Ur Specific [place] (1.005-1.030) Urine Protein (Negative) Urine Glucose (UA) (Negative) Urine Ketones (Negative) Urine Occult Blood (Negative) Urine Nitrite (Negative) Urine Bilirubin (Negative) Urine Urobilinogen (0.2-1.0) Ur Leukocyte Esterase (Negative) Urine RBC (0-5) /hpf Urine WBC (0-5) /hpf Ur Squamous Epith Cells (0-5) /hpf Urine Bacteria (FEW) /hpf Urine Mucus (FEW) /hpf Urine HCG, Qual (NEGATIVE) SARS-CoV-2 RNA (HANNAH) (NEGATIVE) 08/06/20 08/06/20 08/06/20 Range/Units 00:24 00:24 05:45 WBC (3.98-10.04) K/mm3 RBC (3.98-5.22) M/mm3 Hgb (11.2-15.7) gm/dl Hct (34.1-44.9) % MCV (79.4-94.8) fl MCH (25.6-32.2) pg MCHC (32.2-35.5) g/dl RDW Std Deviation (36.4-46.3) fL Plt Count (182-369) K/mm3 MPV (9.4-12.3) fl Neutrophils % (Manual) (40-60) % Band Neutrophils % (0-10) % Lymphocytes % (Manual) (20-40) % Atypical Lymphs % % Monocytes % (Manual) (2-10) % Eosinophils % (Manual) (0.7-5.8) % Basophils % (Manual) (0.1-1.2) Platelet Estimate RBC Morph Comment D-Dimer, Quantitative (0.19-0.50) mg/L Sodium 139 (136-145) mEq/L Potassium 2.3 L* (3.5-5.1) mEq/L Chloride 103 (98-107) mEq/L Carbon Dioxide 25 (21-32) mEq/L Anion Gap 13.3 (5-15) BUN 12 (7-18) mg/dL Creatinine 1.0 (0.55-1.02) mg/dL Est Cr Clr Drug Dosing 60.40 mL/min Estimated GFR (MDRD) 60 (>60) mL/min BUN/Creatinine Ratio 12.0 L (14-18) Glucose 94 (74-106) mg/dL Calcium 8.3 L (8.5-10.1) mg/dL Magnesium 1.9 (1.8-2.4) mg/dl Total Bilirubin (0.2-1.0) mg/dL AST (15-37) U/L ALT (14-59) U/L Alkaline Phosphatase (46-116) U/L Troponin I (0.00-0.056) ng/mL Total Protein (6.4-8.2) g/dl Albumin (3.4-5.0) g/dl Globulin gm/dL Albumin/Globulin Ratio (1-2) Urine Color Yellow (Yellow) Urine Appearance Clear (Clear) Urine pH 7.0 (5.0-8.0) Ur Specific [place] 1.020 (1.005-1.030) Urine Protein 1+ H (Negative) Urine Glucose (UA) Negative (Negative) Urine Ketones Negative (Negative) Urine Occult Blood 2+ H (Negative) Urine Nitrite Negative (Negative) Urine Bilirubin Negative (Negative) Urine Urobilinogen 0.2 (0.2-1.0) Ur Leukocyte Esterase 2+ H (Negative) Urine RBC >100 H (0-5) /hpf Urine WBC >100 H (0-5) /hpf Ur Squamous Epith Cells 10-20 H (0-5) /hpf Urine Bacteria Few (FEW) /hpf Urine Mucus Not seen (FEW) /hpf Urine HCG, Qual Negative (NEGATIVE) SARS-CoV-2 RNA ([place]AN[place]H) (NEGATIVE) 08/06/20 Range/Units 06:23 WBC (3.98-10.04) K/mm3 RBC (3.98-5.22) M/mm3 Hgb (11.2-15.7) gm/dl Hct (34.1-44.9) % MCV (79.4-94.8) fl MCH (25.6-32.2) pg MCHC (32.2-35.5) g/dl RDW Std Deviation (36.4-46.3) fL Plt Count (182-369) K/mm3 MPV (9.4-12.3) fl Neutrophils % (Manual) (40-60) % Band Neutrophils % (0-10) % Lymphocytes % (Manual) (20-40) % Atypical Lymphs % % Monocytes % (Manual) (2-10) % Eosinophils % (Manual) (0.7-5.8) % Basophils % (Manual) (0.1-1.2) Platelet Estimate RBC Morph Comment D-Dimer, Quantitative (0.19-0.50) mg/L Sodium (136-145) mEq/L Potassium (3.5-5.1) mEq/L Chloride (98-107) mEq/L Carbon Dioxide (21-32) mEq/L Anion Gap (5-15) BUN (7-18) mg/dL Creatinine (0.55-1.02) mg/dL Est Cr Clr Drug Dosing mL/min Estimated GFR (MDRD) (>60) mL/min BUN/Creatinine Ratio (14-18) Glucose (74-106) mg/dL Calcium (8.5-10.1) mg/dL Magnesium (1.8-2.4) mg/dl Total Bilirubin (0.2-1.0) mg/dL AST (15-37) U/L ALT (14-59) U/L Alkaline Phosphatase (46-116) U/L Troponin I (0.00-0.056) ng/mL Total Protein (6.4-8.2) g/dl Albumin (3.4-5.0) g/dl Globulin gm/dL Albumin/Globulin Ratio (1-2) Urine Color (Yellow) Urine Appearance (Clear) Urine pH (5.0-8.0) Ur Specific [place] (1.005-1.030) Urine Protein (Negative) Urine Glucose (UA) (Negative) Urine Ketones (Negative) Urine Occult Blood (Negative) Urine Nitrite (Negative) Urine Bilirubin (Negative) Urine Urobilinogen (0.2-1.0) Ur Leukocyte Esterase (Negative) Urine RBC (0-5) /hpf Urine WBC (0-5) /hpf Ur Squamous Epith Cells (0-5) /hpf Urine Bacteria (FEW) /hpf Urine Mucus (FEW) /hpf Urine HCG, Qual (NEGATIVE) SARS-CoV-2 RNA (HANNAH) Negative (NEGATIVE) Result Diagrams: 08/05/20 23:59 08/06/20 05:45 Sepsis Event Note - Evaluation Sepsis Screening Result: No Definite Risk - Focused Exam Vital Signs: Vital Signs Temp Temp Pulse Pulse Resp BP BP 08/06/20 07:59 98.1 F 69 16 116/82 08/05/20 23:43 97.6 F 60 16 126/77 Pulse Ox 08/06/20 07:59 100 08/05/20 23:43 100 - Problem List (1) Abnormal CT of liver SNOMED Code(s): 03055267609463591 ICD Code: R93.2 - ABNORMAL FINDINGS ON DX IMAGING OF LIVER AND BILIARY TRACT Status: Acute Priority: High Current Visit: Yes (2) Costochondral chest pain SNOMED Code(s): 322248257, 902183937 ICD Code: R07.89 - OTHER CHEST PAIN Status: Acute Priority: High Current Visit: Yes (3) Hypokalemia SNOMED Code(s): 95767997 ICD Code: E87.6 - HYPOKALEMIA Status: Acute Priority: High Current Visit: Yes (4) Renal lithiasis SNOMED Code(s): 40321926 ICD Code: N20.0 - CALCULUS OF KIDNEY Status: Chronic Priority: Low Current Visit: No (5) UTI (urinary tract infection) SNOMED Code(s): 47395828 ICD Code: N39.0 - URINARY TRACT INFECTION, SITE NOT SPECIFIED Status: Acute Priority: High Current Visit: Yes Qualifiers: Urinary tract infection type: acute cystitis Hematuria presence: with hematuria Qualified Code(s): N30.01 - Acute cystitis with hematuria (6) Anxiety SNOMED Code(s): 29935606 ICD Code: F41.9 - ANXIETY DISORDER, UNSPECIFIED Status: Chronic Priority: Low Current Visit: No (7) Hypomagnesemia SNOMED Code(s): 677781562 ICD Code: E83.42 - HYPOMAGNESEMIA Status: Acute Priority: High Current Visit: Yes Problem List Initiated/Reviewed/Updated: Yes Orders Last 24hrs: Active Orders 24 hr Category Date Time Status Admission Status [Patient Status] [ADT] Routine ADT 08/06/20 06:31 Active EKG Documentation Completion [RC] ASDIRECTED Care 08/05/20 23:46 Active Chest 1V Frontal [CR] Stat Exams 08/05/20 23:53 Taken CULTURE URINE [RM] Stat Lab 08/06/20 00:19 Received Potassium Chloride [KCl in Water 10 MEQ/100 ML] 10 meq Med 08/06/20 06:30 Active Premix Bag 1 bag IV Q1H Sodium Chloride 0.9% [Normal Saline] 1,000 ml Med 08/06/20 01:15 Active IV ASDIRECTED EKG 12 Lead [EK] Stat Ther 08/05/20 23:46 Ordered Medication Orders Sodium Chloride (Normal Saline) 1,000 mls @ 125 mls/hr IV ASDIRECTED HARPREET Last Admin: 08/06/20 01:15 Dose: 125 mls/hr Documented by: DANYEL Potassium Chloride 10 meq/ (Premix) 100 mls @ 100 mls/hr IV Q1H HARPREET Stop: 08/06/20 10:29 Last Admin: 08/06/20 06:38 Dose: 100 mls/hr Documented by: LALI Assessment/Plan Comment:: Assessment - Day of admission 08/06/20: * 45-year-old female presents to ED with central chest pain * No cardiac history and only medication is Zoloft. She is a non-smoker. * Twelve-lead EKG shows sinus rhythm at 60 bpm with nonspecific repolarization abnormality * Labs in ED: * WBC 14.09 * Hemoglobin 12.7 * Platelet 344,000 * Neutrophils 47%, no bandemia. * D-dimer less than 0.19 * Sodium 139-->139 * Potassium 1.9->2.3 * Carbon dioxide 25-->25 * Anion gap 15.9-->13.3 * BUN 14-->12, creatinine 1.0-->1.0, GFR 60-->60 * Glucose 88-->94 * Calcium 9.0 * Total bilirubin 0.3 * AST 27, ALT 30, alkaline phosphatase 59 * Troponin 0.028 * Albumin 3.6 * UA 1+ protein, 2+ occult blood, 2+ leukocyte esterase, greater than 100 RBC, greater than 100 WBCs, 10-20 epithelial cells * Urine culture pending * Given both IV and p.o. potassium supplementation in ED * Started on Levaquin 750mg for presumptive UTI, IV fluids started. * CT scan of abdomen shows hepatic lesion in the inferior right lobe. Differential diagnosis includes cavernous hemangioma, focal nodular hyperplasia, or neoplastic change. * Admitted to the medical floor observation status for management of hypokalemia and suspected UTI Plan: Hypokalemia Hypomagnesemia * Supplement * Urine sodium, potassium, creatinine * Re-check serum potassium at 1300 * Telemetry * Repeat 12-lead EKG if indicated * Check phosphorous UTI (urinary tract infection) Hx/o Renal lithiasis * Stop Levaquin * Start Rocephin 2gm * IV fluids as ordered * Await urine cultures Abnormal CT of liver * Abdominal US today * F/O with GI/Heptology Costochondral chest pain * Pain medications as ordered Anxiety * Continue home sertraline Code status: Full code PCP: Mira Burr PA-C DVT prophylaxis: Lovenox Disposition: Patient admitted observation status on telemetry for management of hypokalemia, suspected UTI, and further liver lesion workup. Estimated LOS 24-48 Hrs. - Mortality Measure Prognosis:: Good
[2020-08-06] MEDS ORDERED: Ondansetron 4 MG/2 ML SDV IV PRN (09:22)
--- NOTE | 2020-08-06 09:50 | CT ---
CT abdomen and pelvis Technique: Multiple axial sections were obtained from above the dome of the diaphragm inferiorly through the pubic symphysis. Intravenous and oral contrast was not utilized. Reconstructed coronal and sagittal images were obtained. Comparison: Prior abdominal x-ray performed on 04/19/17. Findings: Visualized lung bases show nothing acute. Liver shows a low density lesion inferiorly which does not appear to be cystic and measures about 3.5 cm. Second lesion is seen more anteriorly within the right lobe of the liver which could represent a cyst or small solid abnormality measuring approximately 1.4 cm. Additional lesion is seen within the left lobe measuring approximately 2.0 cm which is nonspecific for cyst or solid abnormality. Spleen size is normal. Adrenal glands show no nodule. Multiple calcifications are seen within both kidneys which mostly represent nephrocalcinosis although there are also several non-obstructing renal calculi being seen. No ureteral dilatation or ureteral stone is appreciated. No bladder calculi are noted. Pancreas shows no discrete abnormality. Gallbladder is not definitely visualized on this exam. Abdominal aorta shows no aneurysm. No retroperitoneal adenopathy or mesenteric abnormalities are seen. No pelvic mass or adenopathy is seen. Scattered fluid is noted within the colon. Appendix is felt to be seen and appears within normal limits. Bone window settings were reviewed. Minimal degenerative change is seen within the spine with slight spondylitic defects being noted within L5. No acute osseous abnormality is appreciated. Impression: 1. Numerous renal calcifications mostly representing nephrocalcinosis with several nonobstructing renal calculi being seen. No ureteral dilatation or ureteral stone is seen. 2. Fluid within the colon. Please correlate if patient is having symptoms of diarrhea. 3. Liver lesions as noted above. These are uncertain as to whether these represent benign or malignant lesions. 4. Other findings believed to be incidental as noted above. Diagnostic code #9 I agree with preliminary report from [facility], finalized on 08/06/20, 3:39 AM CDT
--- NOTE | 2020-08-06 09:54 | US ---
Addendum: Previous report has an error between the body and impression. Body shows an echogenic lesion within the liver which is correct. Impression states kidney lesion which is incorrect. First sentence of the impression should read as follows: 1. 3.9 echogenic lesion within the liver compatible with hemangioma. My apologies. --- Addendum1 above dictated on [08/17/2020 09:30] by [Ammy Bryan Hilton J.] --- --- Addendum1 above signed on [08/17/2020 09:52] by [Ammy Bryan Hilton J.] --- --- Original report below dictated on [08/06/2020 09:48] by [Ammy Bryan Hilton J.] --- --- Original report below signed on [08/06/2020 09:52] by [Ammy Bryan Hilton J.] --- Limited abdominal ultrasound: Multiple real-time images of the upper right abdomen were obtained. Comparison: Prior CT abdomen and pelvis exam performed earlier on the same day (1:23 AM). Findings: Liver shows an echogenic lesion measuring 3.9 cm which is felt compatible with a hemangioma. This correlates to the area on prior CT exam. Two other smaller areas are noted on prior CT study which are not appreciated on this ultrasound exam but are most likely incidental given that the larger lesion has a benign appearance. Gallbladder is seen and shows no evidence of shadowing gallstones, gallbladder wall thickening or biliary duct dilatation. Numerous calcifications are seen within the renal parenchyma compatible with nephrocalcinosis. No hydronephrosis is seen. Right kidney measures 12.8 cm. Pancreas shows no discrete abnormality. Main portal vein shows normal hepatopedal flow. Impression: 1. 3.9 cm echogenic lesion within the kidney compatible with hemangioma. This correlates to larger finding on CT exam. Two other small CT findings are not seen on the ultrasound which are likely incidental given that the larger lesion is benign. 2. Nephrocalcinosis within the right kidney. No hydronephrosis. 3. No additional abnormality is appreciated on right upper quadrant abdominal ultrasound. Diagnostic code #3 --- Addendum1 signed ---
[2020-08-06] MEDS ORDERED: Magnesium Sulfate/Water 2 GM/50 ML BAG IV ONE (10:00)
[2020-08-06] MEDS ORDERED: Sertraline 50 MG Tab PO SCH ×2 (10:00→11:40)
[2020-08-06] MEDS ORDERED: Ibuprofen 600 MG Tab PO PRN (10:04)
[2020-08-06] MEDS: Enoxaparin 40 MG/0.4 ML Syringe SUBCUT SCH (10:36)
[2020-08-06] MEDS: Potassium Chloride 20 MEQ Tab.ER PO SCH ×2 (10:36→20:18)
[2020-08-06] MEDS: Phosphorus #1 250 MG Tab PO SCH ×2 (11:16→20:18)
--- NOTE | 2020-08-06 11:25 | CR ---
Chest: Portable view of the chest was obtained. Comparison: No previous chest imaging is available. Heart size and mediastinum are normal. Lungs are clear with no acute parenchymal change. No acute osseous finding is seen. Impression: 1. Nothing acute is seen on portable chest x-ray. Diagnostic code #1
[2020-08-06] MEDS: Sertraline 50 MG Tab PO SCH (11:51)
[2020-08-07] MEDS ORDERED: cefTRIAXone 2 GM in Sodium Chloride 0.9% 100 ML IV SCH (01:30)
[2020-08-07] MEDS ORDERED: Lactated Ringers 1,000 ML IV SCH (08:30)
[2020-08-07] MEDS: Potassium Chloride 10 MEQ in Premix Bag 1 BAG IV SCH ×4 (08:41→12:02)
[2020-08-07] MEDS: Sertraline 50 MG Tab PO SCH (08:43)
[2020-08-07] MEDS: Enoxaparin 40 MG/0.4 ML Syringe SUBCUT SCH (08:43)
[2020-08-07] MEDS: Potassium Chloride 20 MEQ Tab.ER PO SCH (08:44)
[2020-08-07] MEDS ORDERED: Potassium Chloride 20 MEQ Tab.ER PO ONE (11:30)
[2020-08-07] MEDS ORDERED: Cholecalciferol (Vitamin D3) 5,000 UNIT Cap PO SCH (13:15)
--- NOTE | 2020-08-07 13:59 | PCM.DCSUM1 ---
Discharge Summary - Hospital Course HPI Initial Comments: This is a 45-year-old female who presents to ED in the late night hours of 08/05/2020 with chest pain. She states the pain is located in her central chest. She received her first [employer] Covid vaccination 3 days ago and reports she felt nonspecifically unwell the day after. She reports she felt better yesterday but today she has had central chest pain exacerbated by deep breathing and movement of her torso. Denies any diaphoresis, paris shortness of breath, syncope, near syncope, nausea, vomiting, fever, urinary symptoms, cough. No prior cardiac risk factors and her only medication is Zoloft. She is a non- smoker and says she is postmenopausal and cannot remember when she has had her last period. History of kidney stones and pyelonephritis. She also reports history of hypokalemia. Currently denies any flank pain or dysuria. In the ED temp is 36.4 Celsius. Pulse 60. Respirations 16. Blood pressure 126/77. Pulse ox 100. Twelve-lead EKG shows a sinus rhythm at 60 bpm with a diffuse nonspecific repolarization abnormality. Labs are obtained showing a leukocytosis of 14.09. Hemoglobin is 12.7. Platelets are 344,000. Neutrophils are 47% and there is no bandemia. D-dimer is less than 0.19. Sodium 139. Potassium 1.9. Chloride 100. Carbon dioxide 25. Anion gap 15.9. Creatinine 1.0. GFR 60, glucose 88, total bilirubin 0.3. AST 27, ALT 30, alkaline phosphatase 59. Troponin 0 0.028. Protein 7.0. Albumin 3.6. UA is obtained and is suggestively positive with a protein of 1+, 2+ occult blood, 2+ leukocyte esterase, greater than 100 RBCs, greater than 100 WBCs, however 10-20 squamous epithelial cells are noted. Urine hCG is negative. Urine is sent for culture. The patient is given both IV and p.o. potassium and repeat BMP is obtained nearly 6 hours later. She is also started on IV fluids and given IV Levaquin fo r presumptive UTI. BMP shows a increase potassium to 2.3 and an improved anion gap to 13.3. Magnesium was also checked and is 1.9. CT scan of the abdomen pelvis is obtained showing a hepatic lesion in the inferior right lobe. Differential diagnosis includes cavernous hemangioma, focal nodular hyperplasia, or neoplastic change. Plan is to admit the patient for observation status to supplement her potassium and work-up abnormal CT finding further. We will also await findings of her urine culture. She carries a history of anxiety and renal calculus requiring lithotripsy. She was never a smoker. Primary care provider is Mira Burr PA-C at [facility]. Diagnosis: Stroke: No - Discharge Data Discharge Date: 08/07/20 (Admit date: 08/06/20) Discharge Disposition: Home, Self-Care 01 Condition: Good - Referral to Home Health Primary Care Physician: JOSSELYN Edmondson - Discharge Diagnosis/Problem(s) (1) Abnormal CT of liver SNOMED Code(s): 93518813676716676 ICD Code: R93.2 - ABNORMAL FINDINGS ON DX IMAGING OF LIVER AND BILIARY TRACT Status: Acute Priority: High Current Visit: Yes (2) Costochondral chest pain SNOMED Code(s): 577049226, 657976645 ICD Code: R07.89 - OTHER CHEST PAIN Status: Acute Priority: High Current Visit: Yes (3) Hypokalemia SNOMED Code(s): 30568232 ICD Code: E87.6 - HYPOKALEMIA Status: Acute Priority: High Current Visit: Yes (4) Renal lithiasis SNOMED Code(s): 80363294 ICD Code: N20.0 - CALCULUS OF KIDNEY Status: Chronic Priority: Low Current Visit: No (5) UTI (urinary tract infection) SNOMED Code(s): 94778904 ICD Code: N39.0 - URINARY TRACT INFECTION, SITE NOT SPECIFIED Status: Ruled-out Priority: High Current Visit: Yes Qualifiers: Urinary tract infection type: acute cystitis Hematuria presence: with hematuria Qualified Code(s): N30.01 - Acute cystitis with hematuria (6) Anxiety SNOMED Code(s): 62234048 ICD Code: F41.9 - ANXIETY DISORDER, UNSPECIFIED Status: Chronic Priority: Low Current Visit: No (7) Hypomagnesemia SNOMED Code(s): 667674349 ICD Code: E83.42 - HYPOMAGNESEMIA Status: Resolved Priority: High Current Visit: Yes (8) Vitamin D deficiency SNOMED Code(s): 54540126 ICD Code: E55.9 - VITAMIN D DEFICIENCY, UNSPECIFIED Status: Acute Priority: High Current Visit: Yes - Patient Summary/Data Consults: Consultations 08/06/20 09:22 Consult to [facility] [CONS] Routine Labs Pending at D/C: Urine potassium, aldosterone, renin activity, aldosterone/renin ratio Recommended Follow-up Testing/Procedures: Follow-up with primary care provide this week -Repeat BMP ordered for 07/29/2020 -Recommend repeat CBC, CMP, Magnesium, phosphorous at that visit -Patient prescribed daily potassium and vitamin D supplementation at discharge Recommend urology follow-up regarding renal stones Recommend GI/Hepatology follow-up regarding liver lesion Hospital Course: This is a 45-year-old female who presents to ED on 08/06/2020 with central chest pain. She has no cardiac history and reports her only medication is Zoloft for anxiety. Twelve-lead EKG initially showed a sinus rhythm at 60 bpm and nonspecific repolarization abnormality. At that time she was found to have a white count of 14.09 and neutrophils of 47% but no bandemia. Anion gap is high at 15.3. Potassium was very low at 1.9. UA showed 2+ occult blood, 2+ leukocyte esterase, greater than 100 RBC, greater than 100 WBCs, and 10-20 epithelial cells. Urine culture was obtained at this point is growing 10-20 group be beta strep with official culture report pending. She was given Lovenox 750 in the ED for presumptive UTI and IV fluids were started. CT scan of the abdomen was obtained and showed a hepatic lesion in the inferior right lobe. Renal stones were also noted. She was admitted to the medical floor for further management. It is believed her chest pain was costochondritis. Potassium was supplemented on the floor both via IV and p.o. urine creatinine was checked and was within normal limits and urine sodium was checked and was low. Urine potassium is still pending. Aldosterone, renin activity, and aldosterone/renin ratio were obtained and are still pending. Magnesium was on the low end of normal and was supplemented. Phosphorus was low and was supplemented. Both of these were within normal limits on recheck. Upper quadrant abdominal ultrasound was obtained and liver lesion is believed to be a large hemangioma. Vitamin D was obtained and was low. TSH was within normal limits. Plan was to keep patient admitted for 1 more day however patient adamantly refused this and reported that she had to get home to her family. She stated we were either going to discharge her today or she would leave AMA. Repeat potassium was checked this afternoon and was within normal limits at 4.1, however it is felt this is likely elevated due to her relatively recent IV infusion of potassium. She did see our dietitian and did report a remote history of an eating disorder in college and also concerns over irritable bowel syndrome. She will be discharged home today on 40 mEq potassium daily and 1000 units daily vitamin D. Order was placed to recheck potassium on 08/08/2020, is all to her primary care provider. Report was given to her primary care provider prior to discharge. Recommend patient follow-up with primary care provider this week if possible. Recommend repeat CBC, CMP, and magnesium at that visit. Recommend patient follow-up with urology regarding renal stones and also GI/hepatology regarding liver lesion. She was discharged home today. Other home medications were continued. - Patient Instructions Diet: Usual Diet as Tolerated Activity: As Tolerated Driving: May Drive Today Showering/Bathing: May Shower Notify Provider of: Fever, Increased Pain, Nausea and/or Vomiting Other/Special Instructions: Follow-up with primary care provider this week regarding hypokalemia, renal stones, and hemangioma in your liver. Repeat BMP (lab draw) tomorrow 07/29/20. Your vitmain D was low and we sent a prescription to supplement this. Your potassium improved. You were sent a prescription for 40mg daily. Continue this as directed. You do not have a UTI. You will not be prescribed anything for this. Should symptoms return or worsen contact primary care provider or return to the Emergency Department. - Discharge Plan *PRESCRIPTION DRUG MONITORING PROGRAM REVIEWED*: No *COPY OF PRESCRIPTION DRUG MONITORING REPORT IN PATIENT NOREEN: No Prescriptions/Med Rec: Potassium Chloride 40 meq PO DAILY #10 tablet.er Cholecalciferol (Vitamin D3) [Vitamin D3] 5,000 unit PO DAILY #20 cap Home Medications: Home Meds Sertraline HCl [Zoloft] 150 mg PO DAILY 01/27/14 [History] Cholecalciferol (Vitamin D3) [Vitamin D3] 5,000 unit PO DAILY #20 cap 08/07/20 [Rx] Potassium Chloride 40 meq PO DAILY #10 tablet.er 08/07/20 [Rx] Oxygen Therapy Mode: Room Air Patient Handouts: Kidney Stones, Hypokalemia, Sepsis, Diagnosis, Adult, Potassium Content of Foods, Dietary Guidelines to Help Prevent Kidney Stones, Chest Wall Pain, Vitamin D Deficiency, [id number] Forms: ED Department Discharge Referrals: Mira Burr PA-C [Primary Care Provider] - 08/14/20 12:30 pm (Hospital follow-up appointment.) - Discharge Summary/Plan Comment DC Time >30 min.: Yes (45 mins ) - General Info Date of Service: 08/07/20 Admission Dx/Problem (Free Text: Admission Diagnosis/Problem Admission Diagnosis/Problem Hypokalemia Functional Status: Reports: Pain Controlled, Tolerating Diet, Ambulating, Urinating. Denies: New Symptoms - Review of Systems General: Reports: No Symptoms. Denies: Fever, Weakness, Fatigue, Malaise, Chills HEENT: Reports: No Symptoms. Denies: Headaches, Sore Throat Pulmonary: Reports: Pleuritic Chest Pain (improved ). Denies: Shortness of Breath, Cough, Sputum, Wheezing Cardiovascular: Reports: Chest Pain (with deep inspiration and palpation ). Denies: Palpitations, Dyspnea on Exertion, Edema Gastrointestinal: Reports: No Symptoms. Denies: Abdominal Pain, Constipation, Diarrhea, Difficulty Swallowing, Nausea, Vomiting Genitourinary: Reports: No Symptoms. Denies: Pain Musculoskeletal: Reports: No Symptoms Skin: Reports: No Symptoms. Denies: Cyanosis Neurological: Reports: No Symptoms. Denies: Confusion, Pre-Existing Deficit, Difficulty Walking, Weakness, Gait Disturbance Psychiatric: Reports: No Symptoms. Denies: Confusion - Patient Data Vitals - Most Recent: Last Vital Signs Temp 97.9 F 08/07/20 11:49 Pulse 65 08/07/20 11:49 Resp 16 08/07/20 11:49 BP 97/74 08/07/20 11:49 Pulse Ox 99 08/07/20 11:49 Weight - Most Recent: 118 lb I&O - Last 24 hours: Intake & Output 08/06/20 08/07/20 08/07/20 22:59 06:59 14:59 Intake Total 1515 1300 Output Total 1500 1650 Balance 15 -350 Lab Results - Last 24 hrs: Laboratory Results - last 24 hr 08/06/20 08/06/20 08/07/20 Range/Units 00:19 13:50 05:53 WBC (3.98-10.04) K/mm3 RBC (3.98-5.22) M/mm3 Hgb (11.2-15.7) gm/dl Hct (34.1-44.9) % MCV (79.4-94.8) fl MCH (25.6-32.2) pg MCHC (32.2-35.5) g/dl RDW Std Deviation (36.4-46.3) fL Plt Count (182-369) K/mm3 MPV (9.4-12.3) fl Neut % (Auto) (34.0-71.1) % Lymph % (Auto) (19.3-51.7) % [place] % (Auto) (4.7-12.5) % Eos % (Auto) (0.7-5.8) Baso % (Auto) (0.1-1.2) % Neut # (Auto) (1.56-6.13) K/mm3 Lymph # (Auto) (1.18-3.74) K/mm3 [place] # (Auto) (0.24-0.36) K/mm3 Eos # (Auto) (0.04-0.36) K/mm3 Baso # (Auto) (0.01-0.08) K/mm3 Sodium 140 (136-145) mEq/L Potassium 2.6 L (3.5-5.1) mEq/L Chloride 105 (98-107) mEq/L Carbon Dioxide 22 (21-32) mEq/L Anion Gap 15.6 H (5-15) BUN 12 (7-18) mg/dL Creatinine 0.9 (0.55-1.02) mg/dL Est Cr Clr Drug Dosing 66.00 mL/min Estimated GFR (MDRD) > 60 (>60) mL/min BUN/Creatinine Ratio 13.3 L (14-18) Glucose 86 (74-106) mg/dL Calcium 8.7 (8.5-10.1) mg/dL Phosphorus 3.9 (2.6-4.7) mg/dL Magnesium 2.3 (1.8-2.4) mg/dl Vitamin D 25-Hydroxy (30.0-100.0) ng/ml TSH 3rd Generation 0.768 (0.358-3.74) uIU/mL Ur Potassium Concent 4.0 mEq/L 03/30/21 03/30/21 03/30/21 Range/Units 05:53 05:53 13:15 WBC 7.36 (3.98-10.04) K/mm3 RBC 4.46 (3.98-5.22) M/mm3 Hgb 12.0 (11.2-15.7) gm/dl Hct 36.5 (34.1-44.9) % MCV 81.8 (79.4-94.8) fl MCH 26.9 (25.6-32.2) pg MCHC 32.9 (32.2-35.5) g/dl RDW Std Deviation 44.0 (36.4-46.3) fL Plt Count 309 (182-369) K/mm3 MPV 10.6 (9.4-12.3) fl Neut % (Auto) 41.1 (34.0-71.1) % Lymph % (Auto) 48.0 (19.3-51.7) % [place] % (Auto) 7.7 (4.7-12.5) % Eos % (Auto) 2.4 (0.7-5.8) Baso % (Auto) 0.7 (0.1-1.2) % Neut # (Auto) 3.02 (1.56-6.13) K/mm3 Lymph # (Auto) 3.53 (1.18-3.74) K/mm3 [place] # (Auto) 0.57 H (0.24-0.36) K/mm3 Eos # (Auto) 0.18 (0.04-0.36) K/mm3 Baso # (Auto) 0.05 (0.01-0.08) K/mm3 Sodium (136-145) mEq/L Potassium 4.1 D (3.5-5.1) mEq/L Chloride (98-107) mEq/L Carbon Dioxide (21-32) mEq/L Anion Gap (5-15) BUN (7-18) mg/dL Creatinine (0.55-1.02) mg/dL Est Cr Clr Drug Dosing mL/min Estimated GFR (MDRD) (>60) mL/min BUN/Creatinine Ratio (14-18) Glucose (74-106) mg/dL Calcium (8.5-10.1) mg/dL Phosphorus (2.6-4.7) mg/dL Magnesium (1.8-2.4) mg/dl Vitamin D 25-Hydroxy 16.6 L (30.0-100.0) ng/ml TSH 3rd Generation (0.358-3.74) uIU/mL Ur Potassium Concent mEq/L Med Orders - Current: Current Medications Cholecalciferol (Cholecalciferol (Vitamin D3) 5,000 Unit Cap) 5,000 unit PO DAILY [facility] Enoxaparin Sodium (Enoxaparin 40 Mg/0.4 Ml Syringe) 40 mg SUBCUT DAILY [facility] Last Admin: 08/07/20 08:43 Dose: 40 mg Documented by: Ceftriaxone Sodium 2 gm/ (Sodium Chloride) 100 mls @ 200 mls/hr IV Q24H [facility] Last Admin: 08/07/20 01:38 Dose: 200 mls/hr Documented by: Lactated Ringer's (Ringers, Lactated) 1,000 mls @ 100 mls/hr IV ASDIRECTED [facility] Stop: 08/07/20 18:29 Last Admin: 08/07/20 08:40 Dose: 100 mls/hr Documented by: Ibuprofen (Ibuprofen 600 Mg Tab) 600 mg PO Q6H PRN PRN Reason: Pain Ondansetron HCl (Ondansetron 4 Mg/2 Ml Sdv) 4 mg IV Q6H PRN PRN Reason: Nausea/Vomiting Sertraline HCl (Sertraline 50 Mg Tab) 150 mg PO DAILY [facility] Last Admin: 08/07/20 08:43 Dose: 150 mg Documented by: Discontinued Medications Potassium Chloride 10 meq/ (Premix) 100 mls @ 100 mls/hr IV Q1H [facility] Stop: 08/06/20 04:59 Last Admin: 08/06/20 04:41 Dose: 100 mls/hr Documented by: Sodium Chloride (Normal Saline) 1,000 mls @ 125 mls/hr IV ASDIRECTED [facility] Last Admin: 08/06/20 01:15 Dose: 125 mls/hr Documented by: Levofloxacin/Dextrose 750 mg/ (Premix) 150 mls @ 100 mls/hr IV ONETIME ONE Stop: 08/06/20 02:57 Last Admin: 08/06/20 02:31 Dose: 100 mls/hr Documented by: Potassium Chloride 10 meq/ (Premix) 100 mls @ 100 mls/hr IV Q1H [facility] Stop: 08/06/20 10:29 Last Admin: 08/06/20 13:48 Dose: Not Given Documented by: Magnesium Sulfate (Magnesium Sulfate In Water 2 Gm/50 Ml) 2 gm in 50 mls @ 25 mls/hr IV ONETIME ONE Stop: 08/06/20 11:59 Last Admin: 08/06/20 10:37 Dose: 25 mls/hr Documented by: Potassium Chloride 10 meq/ (Premix) 100 mls @ 100 mls/hr IV Q1H [facility] Stop: 08/07/20 11:59 Last Admin: 08/07/20 12:02 Dose: 100 mls/hr Documented by: Potassium Chloride (Potassium Chloride 20 Meq Tab.Er) 40 meq PO ONETIME ONE Stop: 08/06/20 02:19 Last Admin: 08/06/20 02:40 Dose: 40 meq Documented by: Potassium Chloride (Potassium Chloride 20 Meq Tab.Er) 40 meq PO BID [facility] Stop: 08/07/20 09:01 Last Admin: 08/07/20 08:44 Dose: 40 meq Documented by: Potassium Chloride (Potassium Chloride 20 Meq Tab.Er) 40 meq PO ONETIME ONE Stop: 08/06/20 13:31 Last Admin: 08/06/20 14:05 Dose: 40 meq Documented by: Potassium Chloride (Potassium Chloride 20 Meq Tab.Er) 40 meq PO ONETIME ONE Stop: 08/07/20 11:31 Last Admin: 08/07/20 11:45 Dose: 40 meq Documented by: Sodium Phosphate (Phosphorus #1 250 Mg Tab) 250 mg PO BID [facility] Stop: 08/06/20 21:01 Last Admin: 08/06/20 20:18 Dose: 250 mg Documented by: - Exam Quality Assessment: Reports: DVT Prophylaxis General: Reports: Alert, Oriented, Cooperative, No Acute Distress HEENT: Reports: Pupils Equal, Pupils Reactive, Mucous Membr. Moist/[place] Neck: Reports: Supple, Trachea Midline Lungs: Reports: Clear to Auscultation, Normal Respiratory Effort Cardiovascular: Reports: Regular Rate, Regular Rhythm, Other (Midline upper chest tender to palpation - improved ) GI/Abdominal Exam: Normal Bowel Sounds, Soft, Non-Tender, No Distention (Female) Exam: Deferred Rectal (Female) Exam: Deferred Back Exam: Reports: Normal Inspection, Full Range of Motion Extremities: Normal Inspection, Normal Range of Motion, Non-Tender, No Pedal Edema, Normal Capillary Refill Skin: Reports: Warm, Dry, Intact Neurological: Reports: No New Focal Deficit Psy/Mental Status: Reports: Alert, Normal Affect, Normal Mood
== END 2020-08-07 15:05 | disposition home or self-care (01) ==
LOC: JD.ED 23:29 → JD.MS 08-06 06:31
PROVIDERS: ADMIT Internal Medicine; ATTEND Internal Medicine
DX: R07.89 Other chest pain (principal); E87.6 Hypokalemia; R93.2 Abnormal findings on diagnostic imaging of liver and biliary tract; N20.0 Calculus of kidney; N30.01 Acute cystitis with hematuria; F41.9 Anxiety disorder, unspecified; E83.42 Hypomagnesemia; Z20.822 Contact with and (suspected) exposure to COVID-19; Z88.8 Allergy status to other drugs, medicaments and biological substances; Z79.899 Other long term (current) drug therapy
CPT/HCPCS: 36415; 71045; 74176; 76705; 80048; 80053; 81001; 81025; 82088; 82306; 82570; 83735; 84100; 84132; 84133; 84244; 84300; 84443; 84484; 85007; 85025; 85027; 85379; 87086; 87088; 87186; 87635; 93005; 96365; 96366; 96367; 96368; 96372; 96375; 96376; 99285; A9270; G0378; J0696; J1650; J1956; J3475; J3480; J7030; J7120; 99217; 99219; 99284; U0002

== ENCOUNTER 2024-02-12 21:21 | Emergency (ER) | payer BC, OTHER ==
[2024-02-12] MEDS: Lidocaine 1% 10 ML MDV INJECT ONE (22:19)
== END 2024-02-12 22:50 | disposition home or self-care (01) ==
LOC: JD.ED 21:21
DX: S01.01XA Laceration without foreign body of scalp, initial encounter (principal); Z79.899 Other long term (current) drug therapy; Z88.5 Allergy status to narcotic agent; Z88.6 Allergy status to analgesic agent; W19.XXXA Unspecified fall, initial encounter; Y93.61 Activity, american tackle football
CPT/HCPCS: 12001; 70450; 70450-26; 99283; 99284; J3490